=== PATIENT | female | born 1980 | race Two or more races ===

== ENCOUNTER → 2024-05-29 | Outpatient (CLI) | payer OTHER, SELFPAY ==
--- NOTE | 2024-05-29 11:00 | XR_ITS ---
Examination: Breast ultrasound, unilateral, right complete Date and time of exam: May 29, 2024 1215 hours INDICATIONS: Mammogram November 02, 2023 microcalcifications outer lower right breast Technique: Real-time tao scale ultrasonographic imaging performed right breast including all 4 quadrants as well as nipple retroareolar and axillary region. Findings: 9:00 cyst 4 x 4 millimeter No solid nodules IMPRESSION: BI-RADS Category 2: Benign findings
--- NOTE | 2024-05-29 11:30 | XR_ITS ---
Examination: Screening digital mammography, bilateral Computer aided detection 3-D breast Tomosynthesis, bilateral Date and time of exam: May 29, 2024 1203 hours Compared to mammograms dating to May 18, 2023 Indication: Screening Technique: Nonmagnified MLO, CC views of the breasts to been obtained, reconstructed from 3-D Tomosynthesis images. R2 computer aided detection program utilized for evaluation of suspicious masses and/or abnormal calcifications. 3-D Tomosynthesis images obtained. Findings: The breasts are heterogeneously dense, which may obscure small masses 14 mm 6 mm focal asymmetries inner right breast on the CC view, posterior depth Benign calcifications Impression: BI-RADS Category 0: Incomplete: Additional imaging evaluation Recommend follow-up spot tomographic views, CC, inner right breast and upper right breast on the MLO view to assess focal asymmetries described above Recommend bilateral breast sonography to complete the workup
== END | disposition home or self-care (01) ==
LOC: CDIM 11:38
PROVIDERS: PCP Physician Assistant; Referring Provider Physician Assistant; Visit Provider Physician Assistant
DX: Z12.31 Encounter for screening mammogram for malignant neoplasm of breast (principal); R92.8 Other abnormal and inconclusive findings on diagnostic imaging of breast; N64.89 Other specified disorders of breast; N60.01 Solitary cyst of right breast
CPT/HCPCS: 76641; 77063; 77067

== ENCOUNTER → 2024-09-18 | Outpatient (CLI) | payer MEDICAID, SELFPAY ==
--- NOTE | 2024-09-18 10:30 | XR_ITS ---
Examination: Breast ultrasound complete, bilateral Date and time of exam: September 18, 2024 1105 hours INDICATIONS: Mammogram May 19, 2024 14 mm 6 mm focal asymmetries inner right breast Technique: Real-time grayscale ultrasonographic imaging bilateral breasts, including all 4 quadrants as well as nipple retroareolar and axillary regions. Findings: Sonographic images right breast Benign cysts, the largest in the 3:00 position 7 x 5 mm No solid nodules Sonographic images left breast 10:00 cyst 2 x 3 mm No solid nodules IMPRESSION: BI-RADS Category 2: Benign findings
--- NOTE | 2024-09-18 11:30 | XR_ITS ---
Examination: Diagnostic digital mammography, unilateral, right Computer aided detection 3-D breast Tomosynthesis, unilateral Date and time of exam: September 18, 2024 1136 hours INDICATIONS: Mammogram May 29, 2024 14 mm 6 mm focal asymmetry inner right breast on the CC view Technique: Nonmagnified MLO, CC views of the right breast have been obtained, reconstructed from 3-D Tomosynthesis images. R2 computer aided detection program utilized for evaluation of suspicious masses and/or abnormal calcifications. 3-D Tomosynthesis images obtained. Findings: The breast is heterogeneously dense, which may obscure small masses No suspicious masses However, there are 2 foci of microcalcifications which are in the upper outer and outer right breast Impression: BI-RADS category 0: Incomplete: Need additional imaging evaluation Recommend follow-up magnification views central and upper outer right breast to assess microcalcifications
== END | disposition home or self-care (01) ==
PROVIDERS: PCP Physician Assistant; Referring Provider Physician Assistant; Visit Provider Physician Assistant
DX: N63.22 Unspecified lump in the left breast, upper inner quadrant (principal); R92.333 Mammographic heterogeneous density, bilateral breasts; R92.0 Mammographic microcalcification found on diagnostic imaging of breast; N60.02 Solitary cyst of left breast; N60.11 Diffuse cystic mastopathy of right breast
CPT/HCPCS: 76641; 77061; 77065; G0279